=== PATIENT | male | born 1950 | race Caucasian/White ===

== ENCOUNTER → 2019-05-03 12:01 | Outpatient (CLI) | payer MEDICARE, BC, SELFPAY ==
--- NOTE | 2019-05-03 | XR_ITS ---
PROCEDURE: XR HIP RT 2-3V W/PELVIS CLINICAL INDICATION: Right hip pain and numbness COMPARISON: No exams were available for comparison FINDINGS: Mild osteoarthritic changes are present involving the right hip. No fracture or dislocation. No lytic or blastic lesion. Incidental note is made of mild osteitis pubis as well as mild osteoarthritis of the left hip. IMPRESSION: Osteoarthritis, Dictated by: Constantine Landa MD 05/03/2019 14:18 Electronically signed by Constantine Landa MD in [place] 05/03/2019 14:18
--- NOTE | 2019-05-03 | XR_ITS ---
PROCEDURE: XR LUMBAR SPINE MIN 4V CLINICAL INDICATION: Low back pain, lumbar radiculopathy COMPARISON: No exams were available for comparison FINDINGS: Minimal lumbar curvature convex left. There is degenerative disc disease at L4-5 and L5-S1. Small anterior osteophytes are present L2-S1. There is slight loss of height anteriorly of L1 and T12 which is age indeterminate. Vascular calcification is noted and there is facet arthritic change. There is anterior angulation the coccyx age indeterminate. IMPRESSION: Degenerative changes as detailed above with mild wedging of T12 and L1 of unknown age along with anterior angulation of the coccyx which may be due to an old injury Dictated by: Constantine aLnda MD 05/03/2019 14:31 Electronically signed by Constantine Landa MD in [place] 05/03/2019 14:31
--- NOTE | 2019-05-03 | XR_ITS ---
PROCEDURE: XR CERVICAL SPINE 5V CLINICAL INDICATION: Neck pain, right arm numbness COMPARISON: No exams were available for comparison FINDINGS: There is slight reversal of the mid cervical kyphosis with lordosis mild anterolisthesis of C4 on 08/27 mm. There is degenerative disc disease at C5-C6 and C6-C7. Foraminal narrowing is present on the right at C3-C4 and on the left at C3-C4 C4-C5 and C5-C6. This is due to uncovertebral hypertrophy and mild facet arthritic change. No fracture or dislocation. No lytic or blastic change. IMPRESSION: Degenerate disc disease with cervical spondylosis as described Dictated by: Constantine Landa MD 05/03/2019 14:25 Electronically signed by Constantine Landa MD in [place] 05/03/2019 14:25
== END ==
PROVIDERS: PCP Family Medicine; Visit Provider Family Medicine
DX: M54.16 Radiculopathy, lumbar region (principal); M25.551 Pain in right hip; M54.2 Cervicalgia
CPT/HCPCS: 72050; 72110; 73502

== ENCOUNTER → 2020-08-01 10:58 | Outpatient (CLI) | payer MEDICARE, BC, SELFPAY ==
--- NOTE | 2020-08-01 11:04 | XR_ITS ---
PROCEDURE: XR CHEST 2V CLINICAL HISTORY: CHEST PAIN AT REST, COUGH COMPARISON: No exams were available for comparison FINDINGS: Borderline cardiomegaly without failure. The lungs are clear without infiltrates, suspicious nodules, or pleural effusions. No acute bony abnormalities. IMPRESSION: Borderline cardiomegaly otherwise negative Dictated by: Constantine Landa MD 08/01/2020 12:28 Constantine Landa MD in [place] 08/01/2020 12:28
== END ==
PROVIDERS: PCP Family Medicine; Visit Provider Family Medicine
DX: R07.9 Chest pain, unspecified (principal); R05 Cough
CPT/HCPCS: 71046